=== PATIENT | male | born 1970 | race Caucasian/White ===

== ENCOUNTER 2019-11-27 12:48 | Inpatient (IN) | payer BC, MEDICAID ==
[~2019-11-27] VITALS: Ht 175.3 cm; Wt 89.8 kg
--- NOTE | 2019-11-27 12:57 | NUR ---
Dr. Mckeon at bedside for MSE
[2019-11-27] MEDS ORDERED: BP MED (13:01)
[2019-11-27] MEDS ORDERED: LIPITOR (13:01)
[2019-11-27] MEDS ORDERED: BENA1TAB18 PO (13:03)
[2019-11-27] MEDS ORDERED: ATOR20TA PO (13:03)
--- NOTE | 2019-11-27 13:04 | NUR ---
CODE STROKE ACTIVATED BY .
--- NOTE | 2019-11-27 13:06 | NUR ---
TELEMED REQUEST FILED VIA COMPUTERE, CONNECT ID:[id number].
--- NOTE | 2019-11-27 13:09 | NUR ---
PT TO CT VIA [facility] WITH DONIS KIDD AND AT RISK SPECIALIST WITH ACLS GUIDELINES IN PLACE.
[2019-11-27 13:22] LABS: BASOPHILS % (AUTO) 0.6 % (0.0-2.0); EOSINOPHILS # (AUTO) 0.1 K/uL (0.0-0.7); EOSINOPHILS % (AUTO) 0.9 % (0.0-7.0); HEMATOCRIT 47.3 % (36.7-47.1); HEMOGLOBIN 16.3 g/dL (12.5-16.3); LYMPHOCYTES # (AUTO) 1.5 K/uL (20.0-40.0); LYMPHOCYTES % (AUTO) 22.9 % (20.5-51.5); MEAN CORPUSCULAR HEMOGLOBIN 31.4 uug (23.8-33.4); MEAN CORPUSCULAR HGB CONC 35 g/dL (32.5-36.3); MEAN CORPUSCULAR VOLUME 90.7 fL (73.0-96.2); MONOCYTES # (AUTO) 0.5 K/uL (2.0-10.0); MONOCYTES % (AUTO) 6.8 % (0.0-11.0); NEUTROPHILS # (AUTO) 4.6 K/uL (1.8-8.9); NEUTROPHILS % (AUTO) 68.8 % (38.5-71.5); PLATELET COUNT (AUTO) 233 K/uL (152-348); RED BLOOD CELL COUNT(AUTO) 5.21 MIL/uL (4.06-5.63); WHITE BLOOD COUNT (AUTO) 6.7 K/uL (3.6-10.2)
[2019-11-27] MEDS ORDERED: SWABABLE VALVE TRANSFER SET EA MC ONE (13:24)
[2019-11-27] MEDS ORDERED: IOHEXOL 350 100 ML INFUS..BTL ONE (13:25)
[2019-11-27] MEDS ORDERED: IV NORMAL SALINE 250 ML IV ONE (13:25)
[2019-11-27 13:31] LABS: CREATININE 0.9 mg/dL (0.6-1.3); POTASSIUM 3.6 mmol/L (3.5-5.1)
--- NOTE | 2019-11-27 13:33 | NUR ---
PT BACK FROM CT.
--- NOTE | 2019-11-27 13:35 | NUR ---
PT AMBULATED WITH STEADY GAIT FOR VISUAL ACUITY AND THEN TO THE RESTROOM. NO NEURO DEFICITS NOTED.
[2019-11-27 13:37] LABS: BILIRUBIN,DIRECT 0.1 mg/dL (0.0-0.2); TOTAL PROTEIN, SERUM 7.2 g/dL (6.4-8.2)
--- NOTE | 2019-11-27 13:40 | NUR ---
TELENEUROLOGY CONSULT IN PROGRESS WITH AND NURSING STAFF AT BEDSIDE.
[2019-11-27] MEDS ORDERED: ASPIRIN 325 MG TABLET ONE (13:58)
[2019-11-27] MEDS ORDERED: ASPIRIN 325 MG TABLET PO ONE (14:00)
--- NOTE | 2019-11-27 14:34 | NUR ---
Patient A&O x4. Breathing even and unlabored. Speech clear and able to make needs known / follow commands. Denies any pain or discomfort at this time. NAD noted
[2019-11-27] MEDS ORDERED: ACETAMINOPHEN 325 MG TABLET PO PRN (15:15)
[2019-11-27] MEDS ORDERED: MAG HYDROX/AL HYDROX/SIMETH 30 ML LIQUID UDC PO PRN (15:15)
--- NOTE | 2019-11-27 15:20 | NUR ---
Pt. admitted to Telemetry , under care of Benson Roper Belongs List completed
--- NOTE | 2019-11-27 15:30 | NUR ---
Patient was Admitted from ER via Wheelchair. Patient is awake, alert and verbally responsive. No signs of distress noted. Afebrile. No complain of pain or discomfort noted. patient with Diagnosis of TIA under Roper FOREX TRADER. Head to toe Assessment was done. Patient skin intact. All belongings was signed and check with patient. kept clean and comfortable. kept the call light within easy reach. Will continue to monitor.
[2019-11-27 15:45] VITALS: BP 107/74
--- NOTE | 2019-11-27 16:00 | NUR ---
Nursing Swallow Holger passed, Judson Event Coordinator Marketing And Sales Made aware, patient can start Regular diet.
--- NOTE | 2019-11-27 16:47 | NUR ---
Timber Management Professor Consultation 4:10pm: SW contacted patient's nurse Tosha to conduct the SS consultation assessment via Zoom. Tosha informed this SW that patient was getting tests done in his room, and Tosha would call this SW back as soon as patient was done with his tests.
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
--- NOTE | 2019-11-27 19:00 | NUR ---
PATIENT ALERT ORIENTED, NO SOB NO CHEST PAIN, TELE MONITOR SINUS RHYTHM. PATIENT IN HIS ROOM USING HIS OWN COMPUTER, AMBULATE OCCASIONALLY. PATIENT REPORTED THAT HE DOESN'T HAVE FURTHER EPISODE OF BLURRED VISION, CALL LIGHT WITHIN REACH, CALL LIGHT WITHIN REACH.
[2019-11-27 20:09] VITALS: BP 112/74
[2019-11-27] MEDS ORDERED: ATORVASTATIN 40 MG TABLET PO SCH (21:00)
--- NOTE | 2019-11-27 22:00 | NUR ---
ADMITTED PATIENT ON MED SURG FLOOR UNDER THE CARE OF WAYNE AYALA NP. PATIENT ALERT BUT WITH CONFUSION, SPEAK FARSI BUT UNDERSTAND SOME MONGOLIAN. PATIENT HAS NO S/S OF SOB, NO CHEST PAIN OR PAIN AT THIS TIME. PATIENT WAS KEPT CLEAN AND DRY, CALL LIGHT WITHIN REACH. Addendum: 11/28/19 at 0137 by CLEMENTE MCPHERSON RN ADMITTED PATIENT ON MED SURG FLOOR UNDER THE CARE OF WAYNE AYALA NP. PATIENT ALERT BUT WITH CONFUSION, SPEAK FARSI BUT UNDERSTAND SOME MONGOLIAN. PATIENT HAS NO S/S OF SOB, NO CHEST PAIN OR PAIN AT THIS TIME. PATIENT WAS KEPT CLEAN AND DRY, CALL LIGHT WITHIN REACH. CHARTING IN ERROR.
[2019-11-28 00:20] VITALS: BP 116/71
--- NOTE | 2019-11-28 05:20 | NUR ---
PATIENT ALERT ORIENTED, NO SOB NO CHEST PAIN, TELE MONITOR SINUS RYTHM, SINUS ASHWINI HIGH 50'S. PATIENT HAS NO COMPLAIN OF PAIN, NO FURTHER EPISODE OF BLURRED VISION, CONTINENT OF BLADDER. V/S STABLE. CONT TO MONITOR.
[2019-11-28 05:33] VITALS: BP 100/58
[2019-11-28 06:21] LABS: BASOPHILS % (AUTO) 0.5 % (0.0-2.0); EOSINOPHILS # (AUTO) 0.2 K/uL (0.0-0.7); EOSINOPHILS % (AUTO) 2.7 % (0.0-7.0); HEMOGLOBIN 16.2 g/dL (12.5-16.3); LYMPHOCYTES # (AUTO) 2.1 K/uL (20.0-40.0); LYMPHOCYTES % (AUTO) 28.6 % (20.5-51.5); MEAN CORPUSCULAR HGB CONC 35 g/dL (32.5-36.3); MEAN CORPUSCULAR VOLUME 90.8 fL (73.0-96.2); MONOCYTES # (AUTO) 0.6 K/uL (2.0-10.0); MONOCYTES % (AUTO) 8.1 % (0.0-11.0); NEUTROPHILS # (AUTO) 4.3 K/uL (1.8-8.9); NEUTROPHILS % (AUTO) 60.1 % (38.5-71.5); PLATELET COUNT (AUTO) 225 K/uL (152-348); RED BLOOD CELL COUNT(AUTO) 5.07 MIL/uL (4.06-5.63); WHITE BLOOD COUNT (AUTO) 7.2 K/uL (3.6-10.2)
[2019-11-28 06:32] LABS: CREATININE 1.1 mg/dL (0.6-1.3)
--- NOTE | 2019-11-28 07:15 | NUR ---
Patient in bed, awake, alert and verbally responsive. No signs of distress noted. No SOB. Afebrile. No complain of Pain or discomfort. No complain of Weakness/blurred vision throughout the night. All Extremities WNL. Kept clean and comfortable. Will continue to monitor.
--- NOTE | 2019-11-28 07:52 | NUR ---
TEXTED DR. BARROS FOR MRI APPROVAL.
[2019-11-28] MEDS ORDERED: ASPIRIN EC 81 MG TABLET.DR PO SCH (09:00)
[2019-11-28 11:15] VITALS: BP 131/89
--- NOTE | 2019-11-28 11:17 | NUR ---
Patient was picked up by 2 EMT via [facility] for MRI w/ contrast at [facility].
--- NOTE | 2019-11-28 13:22 | NUR ---
Patient came back from MRI brain w/o contrast in stable condition.
[2019-11-28] MEDS ORDERED: ASPI81TA31 PO (15:33)
[2019-11-28] MEDS ORDERED: ATOR80TA PO (15:33)
--- NOTE | 2019-11-28 16:11 | NUR ---
Patient is awake, alert and verbally responsive. No signs of distress noted. No SOB. no complain of pain or discomfort. Afebrile. N complain of Blurred vision. All extremities WNL. Patient with Order to discharge Home today, All discharge Order explained to patient and verbalized understanding. Removed Wrist band, IV site and property assessment monitor. All belongings was sent and signed by Patient Patient Left the Building in stable condition.
== END 2019-11-28 16:10 | disposition home or self-care (01) | DRG 69 ==
LOC: ER 12:48 → TELE3 14:54
PROVIDERS: ADMIT Nurse Practitioner Acute Care; ATTEND Nurse Practitioner Acute Care
DX: G45.9 Transient cerebral ischemic attack, unspecified (principal); E86.0 Dehydration; I10 Essential (primary) hypertension; E78.5 Hyperlipidemia, unspecified; R29.700 NIHSS score 0; R40.2362 Coma scale, best motor response, obeys commands, at arrival to emergency department; R40.2142 Coma scale, eyes open, spontaneous, at arrival to emergency department; R40.2252 Coma scale, best verbal response, oriented, at arrival to emergency department; Z87.891 Personal history of nicotine dependence
CPT/HCPCS: 36415; 70030-TC; 70450; 70496; 70551; 71045; 84443; 85025; 85730; 93005; 93307; A4663; G0378; J7050; Q9967